=== PATIENT | female | born 1995 | race African-American/Black ===

== ENCOUNTER 2016-09-18 21:40 | Emergency (ER) | payer OTHER ==
--- NOTE | ~2016-09-18 | CR281 ---
[facility] A Service of [facility] RADIOLOGY TEXT RESULTS PATIENT: VITO MISHRA LOCATION: CFTX : [birth year] UNIT #: [id number] AGE: [address]: EMILY, ER DOCTOR SEX: F ORDER DR: [id number] [facility] [address] [place], [place] [address] [id number] E MR#: [id number] Acc #: [id number] NAME: VITO MISHRA : 1995 SEX: F STUDY DATE/TIME: 09/18/2016 23:16 UNIT: [facility] ROOM: STUDY DESCRIPTION: CR Wrist Min 3 View Lt Attending Physician: Er Doctor Emily Ordering Physician: Ryan Krishna M.D. Primary Care Physician: Primary Care Physician No MEDICAL IMAGING REPORT This report is preliminary unless electronic signature is present EXAM Left wrist HISTORY Left wrist pain after a fall a week ago. Pain in thumb region. FINDINGS Three views of the left wrist were obtained. The bones are normal. There is no dislocation. IMPRESSION Normal left wrist. Dictated by... Keron Mccormick M.D. THIS IS AN ELECTRONICALLY VERIFIED REPORT Keron Mccormick M.D. at 09/19/2016 12:39 PM Abril TD: 09/19/2016 09:28 JOB #: [id number] MEDICAL IMAGING REPORT Page 1 of 1 COPY
[~2016-09-18 21:40] MED LIST: GLUCOPHAGE500 MG PO; NO MEDICATIONS; PROVERA10 MG PO; TYLENOL #3 PO; ZITHROMAX PO
[2016-09-20] MEDS ORDERED: NORCO 7.5-3251 EACH (14:26)
== END 2016-09-19 01:10 | disposition left against medical advice (07) ==
LOC: CED 21:40 → CFTX 23:59
DX: Z53.21 Procedure and treatment not carried out due to patient leaving prior to being seen by health care provider (principal)
CPT/HCPCS: 73110

== ENCOUNTER 2016-09-20 14:09 | Emergency (ER) | payer OTHER ==
[2016-09-20] MEDS ORDERED: NORCO 7.5-3251 EACH (14:26)
== END 2016-09-20 15:36 | disposition home or self-care (01) ==
LOC: SED 14:09
DX: S60.212A Contusion of left wrist, initial encounter (principal); F41.9 Anxiety disorder, unspecified; E28.2 Polycystic ovarian syndrome; W19.XXXA Unspecified fall, initial encounter; Y92.009 Unspecified place in unspecified non-institutional (private) residence as the place of occurrence of the external cause
CPT/HCPCS: 29125; 99283

== ENCOUNTER 2016-09-27 14:40 | Emergency (ER) | payer OTHER ==
[~2016-09-27 14:40] MED LIST changes: +NORCO 7.5-3251 EACH
[2016-09-27 17:11] LABS: URINE SOURCE CLEAN CATCH
[2016-09-27 17:30] LABS: URINE APPEARANCE CLEAR; URINE BILIRUBIN NEG (NEG); URINE BLOOD NEG (NEG); URINE COLOR YELLOW; URINE GLUCOSE NEG (NORM); URINE KETONE NEG (NEG); URINE LEUKOCYTE ESTERASE TRACE (NEG); URINE NITRATE NEG (NEG); URINE PH 7.5 (5-8); URINE PROTEIN NEG (NEG); URINE SPECIFIC GRAVITY 1.015 (1.003-1.035)
[2016-09-27 17:32] LABS: MICRO INDICATED? YES
[2016-09-27 17:47] LABS: CULTURE INDICATED? YES; URINE BACTERIA 1+ (NEG); URINE MUCUS PRESENT; URINE SQUAMOUS EPITHELIAL CELL FEW /[HPF]; URINE WBC 50-100 /[HPF] (0-5)
[2016-09-27 17:48] LABS: URINE TRICHOMONAS PRESENT
[2016-09-30 10:41] LABS: CHLAMYDIA TRACH Not Detected (Not Detected); N GONOR Not Detected (Not Detected)
== END 2016-09-27 18:06 | disposition home or self-care (01) ==
LOC: SED 14:40
PROVIDERS: Physician Assistant
DX: A59.01 Trichomonal vulvovaginitis (principal); Z20.2 Contact with and (suspected) exposure to infections with a predominantly sexual mode of transmission
CPT/HCPCS: 81003; 84703; 87086; 87210; 87491; 87591; 87808; 87905; 96372; 99283; J0696